=== PATIENT | male | born 1960 | race Caucasian/White ===

== ENCOUNTER 2022-06-06 06:40 | Outpatient (CLI) | payer BC, SELFPAY | END 2022-06-06 06:41 | disposition home or self-care (01) | LOC: INJ CL 06:41 | PROVIDERS: PCP Family Medicine; Visit Provider Family Medicine | DX: M54.16 Radiculopathy, lumbar region (principal); M51.36 Other intervertebral disc degeneration, lumbar region | CPT/HCPCS: 64483; J0702; Q9966 ==